=== PATIENT | female | born 1990 | race Hispanic/Latino ===

== ENCOUNTER 2017-06-14 07:54 | Day surgery (SDC) | payer OTHER ==
[2017-06-14] MEDS ORDERED: MORPHINE 10 MG/ML VIAL IV ONE (07:55)
[2017-06-14 08:14] LABS: Specific Gravity >= 1.030 (1.005-1.030)
[2017-06-14] MEDS ORDERED: ROCURONIUM 50 MG/5 ML VIAL IV ONE (08:25)
[2017-06-14] MEDS ORDERED: LIDOCAINE 1% MPF 5 ML VIAL ONE (08:25)
[2017-06-14] MEDS ORDERED: MIDAZOLAM HCL 2 MG/2 ML INJ ONE (08:25)
[2017-06-14] MEDS ORDERED: PROPOFOL 200 MG/20 ML VIAL IV ONE (08:25)
[2017-06-14] MEDS ORDERED: FENTANYL CITR 100 MCG/2 ML ONE (08:25)
[2017-06-14 08:28] LABS: Absolute Lymphocytes (CBC) 2.4 K/uL (0.7-4.9); Absolute Monocytes 0.6 K/uL (0.1-1.3); Absolute Neutrophil 3.6 K/uL (1.8-8.0); Basophils % 0.5 % (0-1.3); Eosinophils % 1.8 % (0-4.4); Hematocrit 42.5 % (36.0-45.0); Lymphocytes % 35.6 % (15.3-44.8); MCH 31.1 pg (27.0-35.0); MCV 91.4 fL (80-100); MPV 10.1 fL (7.6-11.3); Monocytes % 8.5 % (3.3-12.3); RBC Red Blood Cell Count 4.65 M/uL (3.86-4.86)
[2017-06-14] MEDS ORDERED: Ringers Lactate 1,000 ML IV ONE ×2 (08:28→10:31)
[2017-06-14] MEDS ORDERED: CEFOXITIN/SWI 1gm 1 GM/10 ML SYR ONE (08:28)
[2017-06-14 08:36] LABS: Bicarbonate 27 mEq/L (21-31); Glucose Level 108 mg/dL (65-120); Potassium 4.1 mEq/L (3.6-5.0); Sodium Level 137 mEq/L (135-145)
[2017-06-14 08:43] LABS: ALT/SGPT 19 IU/L (10-60); AST/SGOT 19 IU/L (10-42); Albumin 4.4 g/dL (3.2-5.5); Alkaline Phosphatase 70 IU/L (42-121); Amylase Level 87 U/L (28-100); BUN Blood Urea Nitrogen 13 mg/dL (6-20); Bilirubin Direct 0.1 mg/dL (0-0.2); Bilirubin Total 0.4 mg/dL (0.3-1.2); Protein, Total 7.4 g/dL (6.0-8.3)
[2017-06-14] MEDS ORDERED: PROMETHAZINE 25 MG/ML VIAL ONE (10:36)
[2017-06-14] MEDS ORDERED: MEPERIDINE HCL 50 MG/ML AMP ONE (10:36)
[2017-06-14] MEDS ORDERED: D5LR 0 ML IV ONE (10:45)
[2017-06-14] MEDS ORDERED: MEPERIDINE HCL 25 MG/0.5 ML ONE (11:20)
[2017-06-14] MEDS ORDERED: CODEINE 30MG/APAP 300MG TAB ONE (12:38)
--- NOTE | 2017-06-14 20:55 | DS ---
Date of Discharge: 06/14/2017 Discharge Note: The patient will go to Day Surgery and home when stable. Disposition: Home. Condition: Stable. Discharge Instructions: Resume home medications and diet. Activities as tolerated. No heavy lifting . Remove outer dressing in 2 days. Shower. Keep wound clean and dry. Keep Steri-Strips on at all times. Tylenol No. 3 one tablet p.o. q.4 p.r.n. pain. Follow up in my office next Saturday, call for appointment. POPEYE/CHUY Voice ID: [id number] Report ID: [id number]
--- NOTE | 2017-06-14 20:55 | OP ---
Date of Procedure: 06/14/2017 Surgeon: Campbell Lutz MD Structural Steel Worker Apprentice: LORAINE Bob. Preoperative Diagnosis: Symptomatic cholelithiasis. Postoperative Diagnosis: Symptomatic cholelithiasis. Procedure Performed: Laparoscopic cholecystectomy. Estimated Blood Loss: Minimal. Specimen: Gallbladder. Findings: As above. Anesthesia: General. Complications: None. The patient tolerated the procedure in stable condition, taken to Recovery in good general condition. Operative Note: The patient was brought to the OR and placed in the supine position. General anesth esia begun. The patient was prepped and draped in usual sterile fashion. Marcaine 0.5% was infiltra kasandra locally. A 15-blade was used to make a 1 cm supraumbilical midline incision. Subcutaneous tissu e divided. The fascia was identified and divided. A #1 Vicryl stay suture was placed. Peritoneal c avity was entered with blunt dissection. A 12 mm trocar was placed into the peritoneal cavity under direct vision. Pneumoperitoneum was established. Then, three 5 mm trocars were placed, 1 in the epi gastrium just to the right of midline and 2 in the right subcostal region. Laparoscopy revealed electric shovel operator eric inflammation of the gallbladder. Fundus retracted superiorly. Infundibulum identified, retracte d inferolaterally. Cystic duct and cystic artery were clearly identified with blunt dissection. Cli ps placed. Both structures divided. Cautery used to remove the gallbladder from the liver bed. Ble eding on the liver bed was controlled with cautery. The gallbladder was retrieved through the umbili cus via an EndoCatch bag. The right upper quadrant examined. No evidence of bleeding or bile leakag e appreciated. Subsequently, all trocars were removed under direct vision. Stay sutures were tied t o each other to reapproximate the fascial defect. The wounds were irrigated. Bleeding controlled wi th cautery. A 3-0 chromic used to approximate the subcutaneous tissue and close the skin. Sterile d ressing was applied. The patient was awakened and taken to Recovery in good general condition. /MODL Voice ID: [id number] Report ID: [id number]
== END 2017-06-14 13:10 | disposition home or self-care (01) ==
LOC: OR 07:54
PROVIDERS: ATTEND Surgery
PROC: 0FT44ZZ Resection of Gallbladder, Percutaneous Endoscopic Approach (ICD-10-PCS; principal; 2017-06-14 08:45)
DX: K80.10 Calculus of gallbladder with chronic cholecystitis without obstruction (principal); Z83.3 Family history of diabetes mellitus
CPT/HCPCS: 36415; 80048; 80076; 81025; 82150; 85025; 88304; 88305; J2175; J2250; J2550; J3010

== ENCOUNTER 2018-03-09 05:18 | Emergency (ER) | payer OTHER, SELFPAY ==
--- OUTSIDE RECORDS SUMMARY | 2018-03-09 05:21 | XMS REPORT ---
:1990 Author Organization eClinicalWorks Care Team Providers Name Role Phone Omid Dobbs Provider Role Unavailable Allergies, Adverse Reactions, Alerts Substance Reaction Event Type N.K.D.A. Info Not Available Non Drug Allergy Problems Problem Type Condition Code Onset Dates Condition Status Problem Encounter for gynecological Z01.419 Active examination without abnormal finding Problem Depression, unspecified depression F32.9 Active type Problem Well woman exam with routine Z01.419 Active gynecological exam Medications Medication Code Code Instructions Start End Status Dosage System Date Date Mirena (52 MG) [facility] [id number] 20 MCG/24HR Active as directed Intrauterine Results No Known Results Summary Purpose [facility]
--- OUTSIDE RECORDS SUMMARY | 2018-03-09 05:21 | XMS REPORT ---
[...] exam with routine Z01.419 Active gynecological exam Assessment Well woman exam with routine Z01.419 Active gynecological exam Assessment Depression, unspecified depression F32.9 Active type Assessment Encounter for gynecological Z01.419 Active examination without abnormal finding Medications Medication Code System Code Instructions Start Date End Date Status Dosage Mirena (52 MG) NDC 0 Active not defined Results Name Result Date Reference Range Unit Abnormality Flag URINALYSIS AUTO W/O SCOPE (81952) ----NIT neg 20171003 ----URO 1.0 20171003 ----PROTEIN neg 20171003 ----pH 5.5 20171003 ----BLO neg 20171003 ----GLUCOSE neg 20171003 ----GHADA neg 20171003 ----BILIRUBIN 1+ 20171003 ----KETONES trace 20171003 ----SPECIFIC GRAVITY 1.030 20171003 Summary Purpose eClinicalWorks Submission
--- OUTSIDE RECORDS SUMMARY | 2018-03-09 05:21 | XMS REPORT ---
[...] with routine Z01.419 Active gynecological exam Assessment Surveillance for control, Z30.431 Active intrauterine device Medications Medication Code Code Instructions Start End Status Dosage System Date Date Mirena (52 MG) [facility] [id number] 20 MCG/24HR Active as directed Intrauterine Results No Known Results Summary Purpose eClinicalWorks Submission
[2018-03-09 06:02] LABS: Urine Blood NEGATIVE (NEG); Urine Glucose NEGATIVE (NEG); Urine Protein NEGATIVE (NEG); Urine Specific Gravity 1.025 (1.005-1.030); Urine pH 5.5 (5.0-7.0)
--- NOTE | 2018-03-09 08:53 | EDPHYS ---
Physician Documentation [facility] Name: Kylie Salas Age: 28 yrs Sex: Female : 1990 Arrival Date: 03/09/2018 Time: 05:25 Bed 8 Private MD: ED Physician Marquise Tamayo HPI: 03/09 06:51 This 28 yrs old Female presents to ER via Ambulatory with complaints of 9 pkl WEEKS PREG PASSED FLUID. 06:51 The patient presents with Patient is about 9 weeks . ( G5, Full Term 1, pkl 3, Living 1, LMP 12/31/17 ). Kempner a gush of fluid in vaginal canal about 1 hour ago. Has abdominal cramping passed 2 days. E/M ENGINEER: 05:43 5, Full Term 1, 3, Living 1, LMP 12/31/2017, Verified, EDC bb 10/07/2018, Gestational age from LMP: 9 weeks 5 days Historical: - Allergies: 05:43 No Known Allergies; bb - Home Meds: 05:43 vitamins [Active]; bb - PMHx: 05:43 None; bb - PSHx: 05:43 Cholecystectomy; bb - Immunization history:: Adult Immunizations up to date. - Social history:: Smoking status: Patient/guardian denies using tobacco, Patient/guardian denies using alcohol, street drugs. - Ebola Screening: : No symptoms or risks identified at this time. ROS: 06:51 Positive for gush of fluid in vaginal canal 1 hour ago. pkl 06:51 Eyes: Negative for injury, pain, redness, and discharge, ENT: Negative for injury, pain, and discharge, Neck: Negative for injury, pain, and swelling, Cardiovascular: Negative for chest pain, palpitations, and edema, Respiratory: Negative for shortness of breath, cough, wheezing, and pleuritic chest pain, Abdomen/GI: Negative for abdominal pain, nausea, vomiting, diarrhea, and constipation, Back: Negative for injury and pain, MS/Extremity: Negative for injury and deformity, Skin: Negative for injury, rash, and discoloration, Neuro: Negative for headache, weakness, numbness, tingling, and seizure. Exam: 06:51 Head/Face: Normocephalic, atraumatic. Eyes: Pupils equal round and reactive to light, pkl extra-ocular motions intact. Lids and lashes normal. Conjunctiva and sclera are non-icteric and not injected. Cornea within normal limits. Periorbital areas with no swelling, redness, or edema. ENT: Nares patent. No nasal discharge, no septal abnormalities noted. Tympanic membranes are normal and external auditory canals are clear. Oropharynx with no redness, swelling, or masses, exudates, or evidence of obstruction, uvula midline. Mucous membranes moist. Neck: Trachea midline, no thyromegaly or masses palpated, and no cervical lymphadenopathy. Supple, full range of motion without nuchal rigidity, or vertebral point tenderness. No Meningismus. Chest/axilla: Normal chest wall appearance and motion. Nontender with no deformity. No lesions are appreciated. Cardiovascular: Regular rate and rhythm with a normal S1 and S2. No gallops, murmurs, or rubs. Normal PMI, no JVD. No pulse deficits. Respiratory: Lungs have equal breath sounds bilaterally, clear to auscultation and percussion. No rales, rhonchi or wheezes noted. No increased work of breathing, no retractions or nasal flaring. Abdomen/GI: Soft, non-tender, with normal bowel sounds. No distension or tympany. No guarding or rebound. No evidence of tenderness throughout. Back: No spinal tenderness. No costovertebral tenderness. Full range of motion. Skin: Warm, dry with normal turgor. Normal color with no rashes, no lesions, and no evidence of cellulitis. MS/ Extremity: Pulses equal, no cyanosis. Neurovascular intact. Full, normal range of motion. Neuro: Awake and alert, GCS 15, oriented to person, place, time, and situation. Cranial nerves II-XII grossly intact. Motor strength 5/5 in all extremities. Sensory grossly intact. Cerebellar exam normal. Normal gait. Vital Signs: 05:43 BP 104 / 71; Pulse 83; Resp 16 S; Temp 98.4(O); Pulse Ox 99% on R/A; Weight 80.74 kg bb (R); Height 5 ft. 5 in. (165.10 cm) (R); Pain 0/10; 05:43 Body Mass Index 29.62 (80.74 kg, 165.10 cm) bb MDM: 06:23 Patient medically screened. nj 07:27 Data reviewed: vital signs, nurses notes. ED course: Nitrazine paper test performed by pool Steele RN ( Stella ) was Negative. 07:31 Patient medically screened. rn 08:51 Differential diagnosis: ovarian cyst, urinary tract infection. Differential diagnosis: rn ectopic . Data reviewed: lab test result(s), radiologic studies, ultrasound, and as a result, I will discharge patient. Counseling: I had a detailed discussion with the patient and/or guardian regarding: the historical points, exam findings, and any diagnostic results supporting the discharge/admit diagnosis. Special discussion: I discussed with the patient/guardian in detail that at this point there is no indication for admission to the hospital. It is understood, however, that if the symptoms persist or worsen the patient needs to return immediately for re-evaluation. ED course: Verified again with patient, no blood, only fluid discharge, u/s shows single IUP, neg UA, will dc home with return precautions.. 03/09 05:42 Order name: Urine Dipstick--Ancillary (enter results); Complete Time: 06:46 ms 03/09 05:42 Order name: Urine --Ancillary (enter results); Complete Time: 06:46 ms 03/09 06:48 Order name: Transvaginal Ob pkl Administered Medications: No medications were administered Disposition: 03/09/18 08:52 Discharged to Home. Impression: Threatened . - Condition is Stable. - Discharge Instructions: Threatened Miscarriage. - Medication Reconciliation Form, Thank You Letter, Antibiotic Education, Prescription Opioid Use form. - Follow up: Private Physician; When: As needed; Reason: Recheck today's complaints, Re-evaluation by your physician. - Problem is new. - Symptoms have improved. Signatures: Dispatcher [employer] EDMS Jarad Leonardo MD MD pkl Cronk, Niki, DANCE STUDIO MANAGER DANCE STUDIO MANAGER Rebecca Plascencia RN RN bb Nieto, Roman, MD MD rn Smirch, Shelby, RN RN ss Corrections: (The following items were deleted from the chart) 09:11 08:52 03/09/2018 08:52 Discharged to Home. Impression: Threatened . Condition ss is Stable. Forms are Medication Reconciliation Form, Thank You Letter, Antibiotic Education, Prescription Opioid Use. Follow up: Private Physician; When: As needed; Reason: Recheck today's complaints, Re-evaluation by your physician. Problem is new. Symptoms have improved. rn
--- NOTE | 2018-03-09 08:53 | ER ---
Nurse's Notes [facility] Name: Kylie Salas Age: 28 yrs Sex: Female : 1990 Arrival Date: 03/09/2018 Time: 05:25 Bed 8 Private MD: Diagnosis: Threatened Presentation: 03/09 05:39 Presenting complaint: Patient states: she was up this morning and felt a "gush of bb fluid" which was not blood or urine pt is 9 weeks and was having abdominal cramping all day Saturday and Saturday. Transition of care: patient was not received from another setting of care. Onset of symptoms was March 09, 2018. Risk Assessment: Do you want to hurt yourself or someone else? Patient reports no desire to harm self or others. Initial Sepsis Screen: Does the patient meet any 2 criteria? No. Patient's initial sepsis screen is negative. Does the patient have a suspected source of infection? No. Patient's initial sepsis screen is negative. Care prior to arrival: None. 05:39 Method Of Arrival: Ambulatory bb 05:39 Acuity: LYNETTE 3 bb NURSES SUPERINTENDENT: 05:43 5, Full Term 1, 3, Living 1, LMP 12/31/2017, Verified, EDC bb 10/07/2018, Gestational age from LMP: 9 weeks 5 days Historical: - Allergies: 05:43 No Known Allergies; bb - Home Meds: 05:43 vitamins [Active]; bb - PMHx: 05:43 None; bb - PSHx: 05:43 Cholecystectomy; bb - Immunization history:: Adult Immunizations up to date. - Social history:: Smoking status: Patient/guardian denies using tobacco, Patient/guardian denies using alcohol, street drugs. - Ebola Screening: : No symptoms or risks identified at this time. Screenin:57 Abuse screen: Denies threats or abuse. Denies injuries from another. Nutritional ca1 screening: No deficits noted. Tuberculosis screening: No symptoms or risk factors identified. Fall Risk None identified. Assessment: 05:57 General: Appears in no apparent distress. comfortable, Behavior is calm, cooperative, ca1 appropriate for age. Pain: Denies pain. Neuro: Level of Consciousness is awake, alert, obeys commands, Oriented to person, place, time, situation. Cardiovascular: Heart tones S1 S2 present Capillary refill < 3 seconds Patient's skin is warm and dry. Respiratory: Airway is patent Trachea midline Respiratory effort is even, unlabored, Respiratory pattern is regular, symmetrical, Breath sounds are clear bilaterally. GI: Abdomen is round non-distended, Bowel sounds present X 4 quads. Abd is soft and non tender X 4 quads. Reports cramping, since since 2 days ago. : Reports of gushing of water from vagina. EENT: No signs and/or symptoms were reported regarding the EENT system. Derm: Skin is intact, is healthy with good turgor, Skin is pink, warm \\T\\ dry. Musculoskeletal: Circulation, motion, and sensation intact. Range of motion: intact in all extremities. 07:10 Reassessment: LD nurse at bedside for nitrizine test, at bedside at this time. sg 07:25 Reassessment: pt observed walking out of ED with her spouse and , pt and pt sg spouse leaving facility to go get breakfast while waiting for aircraft ordnance technician to arrive, aware as this was his decision to let the pt leave and return after breakfast, Charge Nurse notified. 08:18 Reassessment: Pt and spouse back from breakfast. Informed ultrasound. sv Vital Signs: 05:43 BP 104 / 71; Pulse 83; Resp 16 S; Temp 98.4(O); Pulse Ox 99% on R/A; Weight 80.74 kg bb (R); Height 5 ft. 5 in. (165.10 cm) (R); Pain 0/10; 05:43 Body Mass Index 29.62 (80.74 kg, 165.10 cm) bb ED Course: 05:25 Patient arrived in ED. es 05:43 Triage completed. bb 05:43 Arm band placed on Patient placed in an exam room, on a stretcher, on pulse oximetry. bb Family accompanied patient. 05:57 Ceci Ruvalcaba, RN is Primary Nurse. ca1 05:57 Patient has correct armband on for positive identification. Bed in low position. Call ca1 light in reach. Side rails up X 1. 06:23 Jane Troncoso FNP is PHCP. nh 06:23 Jarad Leonardo MD is Attending Physician. nh 06:45 Jarad Leonardo MD is Attending Physician. pkl 07:31 Attending Physician role handed off by Jarad Leonardo MD rn 07:31 Marquise Tamayo MD is Attending Physician. rn 08:26 Patient taken to ultrasound. aa4 09:00 US Transvaginal Ob In Process Unspecified. EDMS 09:10 No provider procedures requiring assistance completed. Patient did not have IV access ss during this emergency room visit. Administered Medications: No medications were administered Outcome: 08:52 Discharge ordered by MD. rn 09:10 Discharged to home ambulatory, with significant other. ss 09:10 Condition: good 09:10 Discharge instructions given to patient, Instructed on discharge instructions, follow up and referral plans. medication usage, Demonstrated understanding of instructions, follow-up care, medications. 09:11 Patient left the ED. ss Signatures: Dispatcher [employer] EDNJ Sandra Birmingham, RN RN Clive Mcgovern RN RN Jarad Leonardo MD MD pkJane Cheney, PARQUET FLOOR LAYER'S HELPER PARQUET FLOOR LAYER'S HELPER Tracey Briones Brenda RN RN Kylie Morel aa4 Marquise Tamayo MD MD rn Smirch, Shelby, RN RN Ceci Ruvalcaba RN RN ca1
--- NOTE | 2018-03-09 13:06 | RAD REPORT ---
EXAM DESCRIPTION: US - Transvaginal OB - 03/09/2018 8:59 am CLINICAL HISTORY: felt gush of fluid Pelvic pain COMPARISON: No comparisons FINDINGS: A single gestational sac is seen within the uterus. The shape of the sac is within normal limits for gestational age. Within the sac is a single pole with crown-rump length of 2.5 cm, c orrelating to estimated gestational age of 9 weeks 2 days. Estimated date of delivery is 10/10/2018. Heart rate is 170 BPM. The placenta is not yet developed due to early gestational age. The maternal adnexa and ovaries are within normal limits. Normal Doppler blood flow was demonstrated to both ovaries. IMPRESSION: Single live early intrauterine gestation with estimated gestational age of 9 weeks 2 day s, ROSETTA 10/10/2018. No unusual or unexpected finding.
== END 2018-03-09 09:11 | disposition home or self-care (01) ==
LOC: ER 05:18
DX: O20.0 Threatened abortion (principal); Z3A.09 9 weeks gestation of pregnancy
CPT/HCPCS: 76817; 81003; 81025; 99284

== ENCOUNTER 2019-12-15 09:04 | Emergency (ER) | payer SELFPAY, OTHER ==
[2019-12-15 09:46] LABS: Basophils % 0.8 % (0-1.3); Hematocrit 42.1 % (36.0-45.0); Lymphocytes % 23.2 % (15.3-44.8); MPV 10.5 fL (7.6-11.3); RBC Red Blood Cell Count 4.66 M/uL (3.86-4.86)
[2019-12-15 09:59] LABS: ALT/SGPT 149 U/L (12-78); AST/SGOT 47 U/L (15-37); Albumin 3.5 g/dL (3.4-5.0); Alkaline Phosphatase 125 U/L (45-117); BUN Blood Urea Nitrogen 10 mg/dL (7-18); Bicarbonate 25 mmol/L (21-32); Bilirubin Direct 0.1 mg/dL (0-0.2); Bilirubin Total 0.3 mg/dL (0.2-1.0); Glucose Level 110 mg/dL (74-106); Lipase 218 U/L (73-393); Potassium 3.9 mmol/L (3.5-5.1); Protein, Total 8.1 g/dL (6.4-8.2); Sodium Level 140 mmol/L (136-145)
[2019-12-15] MEDS ORDERED: ONDANSETRON 4 MG/2 ML VIAL ONE (10:05)
[2019-12-15] MEDS ORDERED: NA CHLORIDE 0.9% 1,000 ML ONE ×2 (10:05→12:14)
[2019-12-15 11:39] LABS: Urine Blood NEGATIVE (NEG); Urine Glucose NEGATIVE (NEG); Urine Protein NEGATIVE (NEG); Urine Specific Gravity >1.030 (1.005-1.030); Urine pH 5.5 (5.0-7.0)
--- NOTE | 2019-12-15 12:19 | RAD REPORT ---
EXAM DESCRIPTION: US - Abdomen Exam Limited - 12/15/2019 9:58 am CLINICAL HISTORY: Abdominal pain. COMPARISON: None. FINDINGS: Liver is enlarged with increased echotexture. Cholecystectomy The gallbladder wall is not thickened. A gallstone is not seen. The biliary tree is normal caliber. IMPRESSION: Hepatomegaly Increased hepatic echotexture probably fatty infiltration
[2019-12-15] MEDS ORDERED: PROMETHAZINE INJ 25 MG/ML AMP ONE (12:27)
[2019-12-15] MEDS ORDERED: MORPHINE 4 MG/ML SYR ONE (12:28)
--- NOTE | 2019-12-15 12:30 | RAD REPORT ---
EXAM DESCRIPTION: CT - Abdomen Pelvis W Contrast - 12/15/2019 12:00 pm CLINICAL HISTORY: Abdominal pain COMPARISON: none. TECHNIQUE: Computed axial tomography of the abdomen pelvis was obtained. 100 cc Isovue-300 was admin istered intravenously. Oral contrast was not requested which limits evaluation of bowel. All CT scans are performed using dose optimization technique as appropriate and may include automated exposure control or mA/KV adjustment according to patient size. FINDINGS: The liver is enlarged with marked fatty infiltration Spleen, pancreas, adrenal and kidneys appear unremarkable. There is no evidence of diverticulitis. A 27 millimeter left ovarian cyst without significant free fluid Small umbilical hernia IMPRESSION: 27 millimeter left ovarian cyst without significant free fluid Hepatomegaly with marked fatty infiltration
--- NOTE | 2019-12-15 12:55 | EDPHYS ---
Physician Documentation [facility] Name: Kylie Salas Age: 29 yrs Sex: Female : 1990 Arrival Date: 12/15/2019 Time: 09:06 Bed 6 Private MD: Nigel Tian ED Physician Marquise Tamayo HPI: 12/14 09:26 This 29 yrs old Female presents to ER via Unassigned with complaints of pm1 Abdominal Pain, Vomiting/Diarrhea, Vertigo. 09:26 The patient presents with abdominal pain in the upper abdomen. Onset: The pm1 symptoms/episode began/occurred 3 day(s) ago. The symptoms do not radiate. Associated signs and symptoms: Pertinent positives: nausea, vomiting, and diarrhea, Pertinent negatives: chest pain, constipation, shortness of breath. The symptoms are described as crampy. Modifying factors: the symptoms are aggravated by food. Severity of pain: in the emergency department the pain has improved is a 4 / 10. The patient has not experienced similar symptoms in the past. The patient has not recently seen a physician. 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 - Social history:: Smoking status: Patient denies any tobacco usage or history of. ROS: 09:36 Eyes: Negative for injury, pain, redness, and discharge, ENT: Negative for injury, pm1 pain, and discharge, Neck: Negative for injury, pain, and swelling, Cardiovascular: Negative for chest pain, palpitations, and edema, Respiratory: Negative for shortness of breath, cough, wheezing, and pleuritic chest pain. 09:36 Back: Negative for injury and pain, : Negative for injury, bleeding, discharge, and swelling, MS/Extremity: Negative for injury and deformity, Skin: Negative for injury, rash, and discoloration, Neuro: Negative for headache, weakness, numbness, tingling, and seizure. 09:36 Constitutional: Positive for poor PO intake, Negative for body aches, fever. 09:36 Abdomen/GI: Positive for abdominal pain, nausea and vomiting, Negative for diarrhea, constipation. Exam: 09:36 Constitutional: This is a well developed, well nourished patient who is awake, alert, pm1 and in no acute distress. Head/Face: Normocephalic, atraumatic. 09:36 Back: No spinal tenderness. No costovertebral tenderness. Full range of motion. Skin: Warm, dry with normal turgor. Normal color with no rashes, no lesions, and no evidence of cellulitis. MS/ Extremity: Pulses equal, no cyanosis. Neurovascular intact. Full, normal range of motion. 09:36 Cardiovascular: Exam negative for acute changes, Rate: normal, Rhythm: regular, Pulses: no pulse deficits are appreciated, Edema: is not appreciated. 09:36 Respiratory: Exam negative for acute changes, respiratory distress, shortness of breath. 09:36 Abdomen/GI: Inspection: abdomen appears normal, Palpation: soft, mild abdominal tenderness, in the epigastric area. 09:36 Neuro: Exam negative for acute changes, Orientation: is normal, Motor: is normal, moves all fours. Vital Signs: 09:18 BP 128 / 92; Pulse 87; Resp 16; Temp 98.8; Pulse Ox 99% on R/A; Pain 6/10; hb 09:32 Weight 95.25 kg; Pain 4/10; iw 12:09 BP 108 / 51; Pulse 72; Pulse Ox 100% on R/A; hb 12:30 BP 108 / 75; Pulse 71; Pulse Ox 100% on R/A; hb MDM: 09:24 Patient medically screened. pm1 09:26 Data reviewed: vital signs. Data interpreted: Pulse oximetry: on room air is 99 %. pm1 Interpretation: normal. 09:26 ED course: Patient rates pain 4/10. She does not want any pain medications at the pm1 moment. Informed her to let us know any time she would like pain medications. 11:50 ED course: Feels better with fluids and medications given in the ER. She would like pm1 more additional fluids. 12:42 Counseling: I had a detailed discussion with the patient and/or guardian regarding: the pm1 historical points, exam findings, and any diagnostic results supporting the discharge/admit diagnosis, lab results, radiology results, the need for outpatient follow up, to return to the emergency department if symptoms worsen or persist or if there are any questions or concerns that arise at home. 12:42 ED course: informed regarding pending covid 19 test results. Will need to isolate and pm1 not work until symptoms resolve and covid results return. 10 09:24 Order name: Basic Metabolic Panel; Complete Time: 10:02 pm1 12/14 09:24 Order name: CBC with Diff; Complete Time: 09:48 pm1 12/14 09:24 Order name: Hepatic Function; Complete Time: 10:02 pm1 12/14 09:24 Order name: Lipase; Complete Time: 10:02 pm1 12/14 09:34 Order name: COVID-19 pm1 12/14 09:34 Order name: Flu pm1 12/14 09:24 Order name: CT Abd/Pelvis - IV Contrast Only; Complete Time: 12:33 pm1 12/14 09:34 Order name: Strep pm1 12/14 09:34 Order name: CORONAVIRUS EDMS 12/14 09:34 Order name: Influenza Screen (A ; Complete Time: 11:34 EDMS 12/14 09:34 Order name: Group A Streptococcus Rapid Sc; Complete Time: 11:20 EDMS 12/14 11:10 Order name: Urine Dipstick--Ancillary (enter results); Complete Time: 11:47 bd 12/14 11:10 Order name: Urine --Ancillary (enter results); Complete Time: 11:47 bd 12/14 11:21 Order name: Throat Culture EDMS 12/14 09:24 Order name: IV Saline Lock; Complete Time: 10:19 pm1 12/14 09:24 Order name: Labs collected and sent; Complete Time: 10:18 pm1 12/14 09:24 Order name: Urine Dipstick-Ancillary (obtain specimen); Complete Time: 11:08 pm1 12/14 09:24 Order name: Urine Test (obtain specimen); Complete Time: 11:08 pm1 12/14 09:24 Order name: US Abdomen Limited; Complete Time: 12:23 pm1 Administered Medications: 10:06 Drug: NS 0.9% 1000 ml Route: IV; Rate: 1000 ml; Site: right antecubital; hb 10:07 Drug: Zofran (Ondansetron) 4 mg Route: IVP; Site: right antecubital; hb 12:09 Drug: NS 0.9% 1000 ml Route: IV; Rate: 1000 ml; Site: right antecubital; hb 12:18 Drug: morphine 4 mg Route: IVP; Site: right antecubital; hb 12:45 Follow up: Response: No adverse reaction hb 12:18 Drug: Phenergan 12.5 mg Route: IVP; Site: right antecubital; hb 12:46 Follow up: Response: No adverse reaction hb 12:51 Drug: Bentyl 20 mg Route: PO; hb Disposition: 16:43 Co-signature as Attending Physician, Marquise Tamayo MD. rn Disposition: 12/15/19 12:54 Discharged to Home. Impression: Unspecified abdominal pain, Nausea and vomiting, Other ovarian cysts. - Condition is Stable. - Discharge Instructions: Abdominal Pain, Adult, Nausea and Vomiting, Adult, Ovarian Cyst, Viral Gastroenteritis, Adult. - Prescriptions for Bentyl 20 mg Oral Tablet - take 1 tablet by ORAL route every 6 hours As needed; 20 tablet. Phenergan 25 mg Rectal Suppository - insert 1 suppository by RECTAL route every 6 hours As needed; 12 suppository. promethazine 25 mg Oral Tablet - take 1 tablet by ORAL route every 6 hours As needed; 20 tablet. - Work release form, Medication Reconciliation Form, Thank You Letter, Antibiotic Education, Prescription Opioid Use form. - Follow up: Emergency Department; When: As needed; Reason: Worsening of condition. Follow up: Private Physician; When: 2 - 3 days; Reason: Recheck today's complaints, Continuance of care, Re-evaluation by your physician. - Problem is new. - Symptoms have improved. Signatures: Dispatcher [employer] Maria Luisa Mccoy RN RN Marquise Tamayo MD MD rn Marinas, Patrick, SHAREE PROFESSOR OF OCEANOGRAPHY pm1 Nelda Schuster RN RN Corrections: (The following items were deleted from the chart) 12:57 12:42 ED course: informed regarding pending covid 19 test results. pm1 pm1 13:02 12:54 12/15/2019 12:54 Discharged to Home. Impression: Unspecified abdominal pain; pm1 Nausea and vomiting. Condition is Stable. Forms are Medication Reconciliation Form, Thank You Letter, Antibiotic Education, Prescription Opioid Use. Follow up: Emergency Department; When: As needed; Reason: Worsening of condition. Follow up: Private Physician; When: 2 - 3 days; Reason: Recheck today's complaints, Continuance of care, Re-evaluation by your physician. Problem is new. Symptoms have improved. pm1 13:26 13:02 12/15/2019 12:54 Discharged to Home. Impression: Unspecified abdominal pain; hb Nausea and vomiting; Other ovarian cysts. Condition is Stable. Discharge Instructions: Abdominal Pain, Adult, Nausea and Vomiting, Adult, Viral Gastroenteritis, Adult. Prescriptions for Bentyl 20 mg Oral Tablet - take 1 tablet by ORAL route every 6 hours As needed; 20 tablet, Phenergan 25 mg Rectal Suppository - insert 1 suppository by RECTAL route every 6 hours As needed; 12 suppository, promethazine 25 mg Oral Tablet - take 1 tablet by ORAL route every 6 hours As needed; 20 tablet. and Forms are Medication Reconciliation Form, Thank You Letter, Antibiotic Education, Prescription Opioid Use, Work release form. Follow up: Emergency Department; When: As needed; Reason: Worsening of condition. Follow up: Private Physician; When: 2 - 3 days; Reason: Recheck today's complaints, Continuance of care, Re-evaluation by your physician. Problem is new. Symptoms have improved. pm1
--- NOTE | 2019-12-15 12:55 | ER ---
Nurse's Notes [facility] Name: Kylie Salas Age: 29 yrs Sex: Female : 1990 Arrival Date: 12/15/2019 Time: 09:06 Bed 6 Private MD: Nigel Tian Diagnosis: Unspecified abdominal pain;Nausea and vomiting;Other ovarian cysts Presentation: 12/14 09:18 Chief complaint: Dizziness, upper abdominal pain and N/V x 4 days. Syncopal episode 4 hb days ago. Coronavirus screen: nausea, vomiting. Client presents with at least one sign or symptom that may indicate coronavirus-19. Standard/surgical mask placed on the client. Provider contacted for isolation considerations. Ebola Screen: No symptoms or risks identified at this time. Initial Sepsis Screen: Does the patient meet any 2 criteria? No. Patient's initial sepsis screen is negative. Does the patient have a suspected source of infection? No. Patient's initial sepsis screen is negative. Risk Assessment: Do you want to hurt yourself or someone else? Patient reports no desire to harm self or others. Onset of symptoms was December 12, 2019. 09:18 Method Of Arrival: Ambulatory hb 09:18 Acuity: LYNETTE 3 hb [employer]: 09:30 LMP 12/09/2019 iw Historical: - Allergies: :28 No Known Allergies; hb - Home Meds: 09:30 Trintellix oral oral once daily [Active]; iw - PMHx: 09:30 Depression; iw - PSHx: 09:28 Cholecystectomy; hb 09:30 ; iw - Immunization history:: Adult Immunizations up to date. - Social history:: Smoking status: Patient denies any tobacco usage or history of. Screenin:28 Abuse screen: Denies threats or abuse. Denies injuries from another. Nutritional hb screening: No deficits noted. Tuberculosis screening: No symptoms or risk factors identified. Fall Risk None identified. Assessment: 09:30 General: Appears in no apparent distress. Behavior is calm, cooperative. Pain: Pain hb currently is 6 out of 10 on a pain scale. Neuro: Level of Consciousness is awake, alert, obeys commands, Oriented to person, place, time, situation. Cardiovascular: Capillary refill < 3 seconds Patient's skin is warm and dry. Respiratory: Respiratory effort is even, unlabored, Respiratory pattern is regular, symmetrical. GI: Reports lower abdominal pain, upper abdominal pain, nausea. : No signs and/or symptoms were reported regarding the genitourinary system. EENT: No signs and/or symptoms were reported regarding the EENT system. Derm: Skin is pink, warm \T\ dry. Musculoskeletal: No signs and/or symptoms reported regarding the musculoskeletal system. 10:30 Reassessment: Patient appears in no apparent distress at this time. Patient and/or hb family updated on plan of care and expected duration. Pain level reassessed. Patient is alert, oriented x 3, equal unlabored respirations, skin warm/dry/pink. 11:30 Reassessment: Patient appears in no apparent distress at this time. Patient and/or hb family updated on plan of care and expected duration. Pain level reassessed. Patient is alert, oriented x 3, equal unlabored respirations, skin warm/dry/pink. 12:30 Reassessment: Patient appears in no apparent distress at this time. Patient and/or hb family updated on plan of care and expected duration. Pain level reassessed. Patient is alert, oriented x 3, equal unlabored respirations, skin warm/dry/pink. Vital Signs: 09:18 BP 128 / 92; Pulse 87; Resp 16; Temp 98.8; Pulse Ox 99% on R/A; Pain 6/10; hb 09:32 Weight 95.25 kg; Pain 4/10; iw 12:09 BP 108 / 51; Pulse 72; Pulse Ox 100% on R/A; hb 12:30 BP 108 / 75; Pulse 71; Pulse Ox 100% on R/A; hb ED Course: 09:06 Patient arrived in ED. mr 09:06 Nigel Tian MD is Private Physician. mr 09:08 Initial lab(s) drawn, by ED staff, sent to lab. Inserted saline lock: 20 gauge in right kj1 antecubital area, using aseptic technique. Blood collected. 09:12 Aidan Soria NP is PHCP. pm1 09:12 Marquise Tamayo MD is Attending Physician. pm1 09:24 Nelda Schuster, GAGAN is Primary Nurse. hb 09:27 Triage completed. hb 09:28 Arm band placed on. hb 09:28 Patient has correct armband on for positive identification. Bed in low position. Call hb light in reach. 09:57 US Abdomen Limited In Process Unspecified. EDMS 12:00 CT Abd/Pelvis - IV Contrast Only In Process Unspecified. EDMS 13:24 No provider procedures requiring assistance completed. IV discontinued, intact, hb bleeding controlled, No redness/swelling at site. Administered Medications: 10:06 Drug: NS 0.9% 1000 ml Route: IV; Rate: 1000 ml; Site: right antecubital; hb 10:07 Drug: Zofran (Ondansetron) 4 mg Route: IVP; Site: right antecubital; hb 12:09 Drug: NS 0.9% 1000 ml Route: IV; Rate: 1000 ml; Site: right antecubital; hb 12:18 Drug: morphine 4 mg Route: IVP; Site: right antecubital; hb 12:45 Follow up: Response: No adverse reaction hb 12:18 Drug: Phenergan 12.5 mg Route: IVP; Site: right antecubital; hb 12:46 Follow up: Response: No adverse reaction hb 12:51 Drug: Bentyl 20 mg Route: PO; hb Outcome: 12:54 Discharge ordered by MD. pm1 13:24 Discharged to home ambulatory. hb 13:24 Condition: stable 13:24 Discharge instructions given to patient, Instructed on discharge instructions, follow up and referral plans. medication usage, Demonstrated understanding of instructions, follow-up care, medications, Prescriptions given X 3. 13:26 Patient left the ED. hb Addendum: 12/18/2019 12:51 Addendum: COVID-19 Result: Negative result given to RN to notify pt. Notified pt of e b negative COVID 19 swab results. Pt advised that even with a negative test result they should remain in isolation until symptom free for 3 days without medication. Pt also advised to return to the ED for worsening symptoms. Signatures: Dispatcher [employer] [facility] Linda Rangel Maria Luisa Mccoy RN RN iw Marinas, Patrick, NP [employer]LL CHANGER pm1 Nelda Schuster RN RN hb Botello, Elizabeth eb Jackson, Kandis kj1 Corrections: (The following items were deleted from the chart) 12/14 09:32 09:18 Coronavirus screen: At this time, the client does not indicate any symptoms iw associated with coronavirus-19. hb
[2019-12-15] MEDS ORDERED: DICYCLOMINE HCL 10 MG CAP ONE (13:02)
[2019-12-15 13:42] VITALS: TEMP 98.8
[2019-12-15 13:51] VITALS: O2SAT 100
[2019-12-15 13:52] VITALS: BP 108/75
--- OUTSIDE RECORDS SUMMARY | 2019-12-17 11:59 | XMS REPORT | Continuity of Care Document ---
:1990 Author Organization [facility] t Address [address] [place] [address] Care Team Providers Name Role Phone Unavailable Unavailable Unavailable Payers Payer Name Policy Type Policy Number Effective Date Expiration Date S ource Problems Condition Condition Condition Status Onset Resolution Last Treating Co mments Source Name Details Category Date Date Treatment Clinician Date Well woman Well woman Problem Active [facility] exam with exam with Luke [facility] - routine routine [facility]oria gynecologi gynecologi l nena exam nena exam Outpat i ent Clinics Depression Depression Problem Active [facility] unspecifie unspecifie Me moria d d l depression depression Ou tpati type type ent Clinics Surveillan Surveillan Diagnosis Active [facility] for [facility] control, control, l intrauteri intrauteri Ou tpati ne device ne device ent Clinics Allergies, Adverse Reactions, Alerts Allergy Allergy Status Severity Reaction(s) Onset Inactive Treating Comm ents Source Name Type Date Date Clinician No Known DA Active U [facility] 5-10 Clear Allergie 00:00: Brenner s 00 [facility] Medications Ordered Filled Start Stop Current Ordering Indication Dosage Frequency Signature Comments Components Source Medication Medication Date Date Medication? Clinician (SIG) Name Name Mirena (52 Mirena (52 Yes Omid as [facility]) MG) Rekhi directed [facility] Procedures This patient has no known procedures. Encounters Start End Encounter Admission Attending Care Care Encounter Source Date/Time Date/Time Type Type Clinicians Facility Department ID 2017-11-13 2017-11-13 Outpatient Harvey Martinez [id number] [facility] 09:30:00 09:30:00 [facility] 2017-10-29 2017-10-29 Outpatient Harvey Martinez [id number] [facility] 16:55:00 16:55:00 t [facility] 2017-10-03 2017-10-03 Outpatient Harvey Martinez [id number] [facility] 09:30:00 09:30:00 t [facility] Results Test Description Test Time Test Comments Results Result Comments Source CBC W/AUTO DIFF 2018-09-13 07:14:00 Test Item Value Reference Range Interpretation Comme nts WHITE BLOOD CELL (test code = WBC) 9.03 x10 3/uL 4.5-11.0 N RED BLOOD CELL (test code = RBC) 3.66 x10 6/uL 3.54-5.02 N HEMOGLOBIN (test code = HGB) 10.9 g/dL 11.0-15.0 L HEMATOCRIT (test code = HCT) 33.9 % 33.0-45.0 N MEAN CELL VOLUME (test code = MCV) 92.6 fL 81.0-99.0 N MEAN CELL HGB (test code = MCH) 29.8 pg 27.0-33.0 N MEAN CELL HGB CONCETRATION (test code = MCHC) 32.2 g/dL 33.0-37. 0 L RED CELL DISTRIBUTION WIDTH CV (test code = RDW) 13.6 % 11.5- 14.5 N RED CELL DISTRIBUTION WIDTH SD (test code = RDW-SD) 45.9 fL 37 .0-54.0 N PLATELET COUNT (test code = PLT) 312 x10 3/uL 150-400 N MEAN PLATELET VOLUME (test code = MPV) 11.6 fL 7.0-9.0 H NEUTROPHIL % (test code = NT%) 57.7 % 56.0-77.0 N IMMATURE GRANULOCYTE % (test code = IG%) 0.7 % 0.0-2.0 N LYMPHOCYTE % (test code = LY%) 31.5 % 14.0-32.0 N MONOCYTE % (test code = MO%) 8.5 % 4.8-9.0 N EOSINOPHIL % (test code = EO%) 1.3 % 0.3-3.7 N BASOPHIL % (test code = BA%) 0.3 % 0.0-2.0 N NUCLEATED RBC % (test code = NRBC%) 0.0 % 0-0 N NEUTROPHIL # (test code = NT#) 5.21 x10 3/uL 2.0-7.6 N IMMATURE GRANULOCYTE # (test code = IG#) 0.06 x10 3/uL 0.00-0.03 H LYMPHOCYTE # (test code = LY#) 2.84 x10 3/uL 1.0-3.8 N MONOCYTE # (test code = MO#) 0.77 x10 3/uL 0.1-0.8 N EOSINOPHIL # (test code = EO#) 0.12 x10 3/uL 0.0-0.2 N BASOPHIL # (test code = BA#) 0.03 x10 3/uL 0.0-0.2 N NUCLEATED RBC # (test code = NRBC#) 0.00 x10 3/uL 0.0-0.1 N MANUAL DIFF REQUIRED (test code = MDIFF) NO COMMENTS: POD #1 and #2COMPREHENSIVE METABOLIC [id number] 08:08:00 Test Item Value Reference Range Interpretation Comments SODIUM (test code = NA) 140 mEq/L 134-147 N POTASSIUM (test code = 3.8 mEq/L 3.4-5.0 N K) CHLORIDE (test code = 109 mEq/L 100-108 H CL) CARBON DIOXIDE (test 23 mEq/L 21-33 N code = CO2) ANION GAP (test code = 12 0-20 N GAP) GLUCOSE (test code = 65 mg/dL 70-110 L GLU) BLOOD UREA NITROGEN 10 mg/dL 7-18 N (test code = BUN) GLOMERULAR FILTRATION 146.9 110-120 H Units of measure = RATE (test code = GFR) ml/mi n/1.73 m2 CREATININE (test code = 0.5 mg/dL 0.6-1.3 L CREAT) TOTAL PROTEIN (test 5.4 g/dL 6.4-8.2 L code = PROT) ALBUMIN (test code = 2.10 g/dL 3.4-5.0 L ALB) CALCIUM (test code = 8.5 mg/dL 8.0-10.5 N CA) BILIRUBIN TOTAL (test 0.20 mg/dL 0.0-1.0 N code = BILT) SGOT/AST (test code = 14 IUnit/L 15-37 L AST) SGPT/ALT (test code = 19 IUnit/L 15-65 N ALT) ALKALINE PHOSPHATASE 108 IUnit/L 20-125 N TOTAL (test code = ALKP) COMMENTS: POD #1CBC W/AUTO [id number] 07:10:00 Test Item Value Reference Range Interpretation Comments WHITE BLOOD CELL (test code = 13.54 x10 3/uL 4.5-11.0 H WBC) RED BLOOD CELL (test code = 3.44 x10 6/uL 3.54-5.02 L RBC) HEMOGLOBIN (test code = HGB) 10.4 g/dL 11.0-15.0 L HEMATOCRIT (test code = HCT) 32.4 % 33.0-45.0 L MEAN CELL VOLUME (test code = 94.2 fL 81.0-99.0 MCV) MEAN CELL HGB (test code = 30.2 pg 27.0-33.0 N MCH) MEAN CELL HGB CONCETRATION 32.1 g/dL 33.0-37.0 L (test code = MCHC) RED CELL DISTRIBUTION WIDTH CV 13.7 % 11.5-14.5 N (test code = RDW) RED CELL DISTRIBUTION WIDTH SD 46.7 fL 37.0-54.0 N (test code = RDW-SD) PLATELET COUNT (test code = 278 x10 3/uL 150-400 N PLT) MEAN PLATELET VOLUME (test 11.8 fL 7.0-9.0 H code = MPV) NEUTROPHIL % (test code = NT%) 61.2 % 56.0-77.0 N IMMATURE GRANULOCYTE % (test 0.5 % 0.0-2.0 N code = IG%) LYMPHOCYTE % (test code = LY%) 28.0 % 14.0-32.0 N MONOCYTE % (test code = MO%) 9.2 % 4.8-9.0 H EOSINOPHIL % (test code = EO%) 0.8 % 0.3-3.7 N BASOPHIL % (test code = BA%) 0.3 % 0.0-2.0 N NUCLEATED RBC % (test code = 0.0 % 0-0 N NRBC%) NEUTROPHIL # (test code = NT#) 8.29 x10 3/uL 2.0-7.6 H IMMATURE GRANULOCYTE # (test 0.07 x10 3/uL 0.00-0.03 H code = IG#) LYMPHOCYTE # (test code = LY#) 3.79 x10 3/uL 1.0-3.8 N MONOCYTE # (test code = MO#) 1.24 x10 3/uL 0.1-0.8 H EOSINOPHIL # (test code = EO#) 0.11 x10 3/uL 0.0-0.2 N BASOPHIL # (test code = BA#) 0.04 x10 3/uL 0.0-0.2 N NUCLEATED RBC # (test code = 0.00 x10 3/uL 0.0-0.1 N NRBC#) MANUAL DIFF REQUIRED (test NO code = MDIFF) COMMENTS: POD #1 and #2RAPID PLASMA [id number] 11:10:00 Test Item Value Reference Range Interpretation Comments RAPID PLASMA REAGIN (test code = NONREACTIVE NONREACTIVE RPR) AG HEPATITIS B [id number] 11:10:00 Test Item Value Reference Range Interpretation Comments AG HEPATITIS B SURFACE NON REACTIVE INDEX NonReactive (test code = HBSAG) AB HIV 1 11:10:00 Test Item Value Reference Range Interpretation Comments AB HIV 1 2 (test code = NONREACTIVE INDEX NONREACTIVE [id number]) RAPID PLASMA [id number] 04:36:00 Test Item Value Reference Range Interpretation Comments RAPID PLASMA REAGIN (test code = RPR) NONREACTIVE AG HEPATITIS B [id number] 04:36:00 Test Item Value Reference Range Interpretation Comments AG HEPATITIS B SURFACE NON REACTIVE INDEX NonReactive (test code = HBSAG) AB HIV 1 04:36:00 Test Item Value Reference Range Interpretation Comments AB HIV 1 2 (test code = NONREACTIVE INDEX NONREACTIVE [id number]) RAPID PLASMA [id number] 02:20:00 Test Item Value Reference Range Interpretation Comments RAPID PLASMA REAGIN (test code = RPR) NONREACTIVE AG HEPATITIS B [id number] 02:20:00 Test Item Value Reference Range Interpretation Comments AG HEPATITIS B SURFACE NON REACTIVE INDEX NonReactive (test code = HBSAG) AB HIV 1 02:20:00 Test Item Value Reference Range Interpretation Comments AB HIV 1 2 (test code = [id number]) INDEX NONREACTIVE CBC W/AUTO [id number] 01:30:00 Test Item Value Reference Range Interpretation Comments WHITE BLOOD CELL (test code = 11.94 x10 3/uL 4.5-11.0 H WBC) RED BLOOD CELL (test code = 3.73 x10 6/uL 3.54-5.02 N RBC) HEMOGLOBIN (test code = HGB) 11.2 g/dL 11.0-15.0 N HEMATOCRIT (test code = HCT) 33.8 % 33.0-45.0 N MEAN CELL VOLUME (test code = 90.6 fL 81.0-99.0 N MCV) MEAN CELL HGB (test code = 30.0 pg 27.0-33.0 N MCH) MEAN CELL HGB CONCETRATION 33.1 g/dL 33.0-37.0 N (test code = MCHC) RED CELL DISTRIBUTION WIDTH CV 13.2 % 11.5-14.5 N (test code = RDW) RED CELL DISTRIBUTION WIDTH SD 44.0 fL 37.0-54.0 N (test code = RDW-SD) PLATELET COUNT (test code = 310 x10 3/uL 150-400 N PLT) MEAN PLATELET VOLUME (test 11.8 fL 7.0-9.0 H code = MPV) NEUTROPHIL % (test code = NT%) 65.9 % 56.0-77.0 N IMMATURE GRANULOCYTE % (test 0.8 % 0.0-2.0 N code = IG%) LYMPHOCYTE % (test code = LY%) 22.2 % 14.0-32.0 N MONOCYTE % (test code = MO%) 10.0 % 4.8-9.0 H EOSINOPHIL % (test code = EO%) 0.8 % 0.3-3.7 N BASOPHIL % (test code = BA%) 0.3 % 0.0-2.0 N NUCLEATED RBC % (test code = 0.0 % 0-0 N NRBC%) NEUTROPHIL # (test code = NT#) 7.87 x10 3/uL 2.0-7.6 H IMMATURE GRANULOCYTE # (test 0.10 x10 3/uL 0.00-0.03 H code = IG#) LYMPHOCYTE # (test code = LY#) 2.65 x10 3/uL 1.0-3.8 N MONOCYTE # (test code = MO#) 1.19 x10 3/uL 0.1-0.8 H EOSINOPHIL # (test code = EO#) 0.10 x10 3/uL 0.0-0.2 N BASOPHIL # (test code = BA#) 0.03 x10 3/uL 0.0-0.2 N NUCLEATED RBC # (test code = 0.00 x10 3/uL 0.0-0.1 N NRBC#) MANUAL DIFF REQUIRED (test NO code = MDIFF) AMNISURE (ROM) [id number] 00:50:00 Test Item Value Reference Range Interpretation Comments AMNISURE (ROM) TEST (test code = POSITIVE NEGATIVE A AMNI)
== END 2019-12-15 13:26 | disposition home or self-care (01) ==
LOC: ER 09:04
DX: N83.299 Other ovarian cyst, unspecified side (principal); Z20.828 Contact with and (suspected) exposure to other viral communicable diseases; R11.2 Nausea with vomiting, unspecified; F32.9 Major depressive disorder, single episode, unspecified
CPT/HCPCS: 36415; 74177; 76705; 80048; 80076; 81003; 81025; 83690; 85025; 87070; 87081; 87804; 96374; 96375; 99284; J2405; J2550; J7030; Q9967; U0002

== ENCOUNTER 2022-07-19 08:09 | Emergency (ER) | payer SELFPAY ==
--- OUTSIDE RECORDS SUMMARY | 2022-07-19 08:14 | XMS REPORT | Continuity of Care Document ---
:1990 Author Organization [facility] t Address [address] [place] [address]. [address] [place] [address] Care Team Providers Name Role Phone RIMMA_KENN_Khalida_J Attending Clinician Unavailable Jennifer Kelley Attending Clinician [phone] Jennifer Kelley Attending Clinician Unavailable Augusto Masters Attending Clinician Unavailable Yoanna Admitting Clinician Unavailable Jennifer Kelley Admitting Clinician Unavailable Payers Payer Name Policy Type Policy Number Effective Date Expiration Date S ource Problems Condition Condition Condition Status Onset Resolution Last Treating Co mments Source Name Details Category Date Date Treatment Clinician Date Encounter Encounter [id number] Active 2020-03-22 for for -12 14:22:27 observatio observatio 00:00: n for n for 00 other other suspected suspected diseases diseases and and conditions conditions ruled out ruled out (Z03.89)On set: Anxiety Anxiety Problem Active [facility] 6-19 [facility] 00:00: 00 Uterine Uterine Problem Active [facility] scar from Scar from - [facility] previous Previous 00:00: surgery in Surgery in 00 , , childbirth Childbirth and the and the puerperium [facility] Candidal Candidal Problem Active [facility] vulvovagin Vulvovagin 03-17 Me dical itis itis 00:00: 00 Multigravi Multigravi Problem Active [facility] da da 03-17 Medical 00:00: 00 Problem Active 2017-03 [facility] 2-17 Medical 00:00: 00 Well woman Well woman Problem Active [facility] exam with exam with Spir it routine routine - [facility] gy[facility]i [facility]necologi nena exam nena exam [facility] Depression Depression Problem Active C ommon , , [facility] unspecifie unspecifie - [facility] d d [facility] depression depression [facility] type [facility] Surveillan Surveillan Diagnosis Active Common ce for ce for Spirit - [facility] control, control, St intrauteri intrauteri [facility] ne device ne device [facility] Allergies, Adverse Reactions, Alerts Allergy Allergy Status Severity Reaction(s) Onset Inactive Treating Comm ents Source Name Type Date Date Clinician No Known DA Active U [facility]10 Clear Allergie 00:00: Brenner s 00 [facility] No Known DA Active U NONE [facility] 5[facility]10 Clear Allergie 00:00: Brenner s 00 [facility] Social History Smoking Status Start Date Stop Date Source Tobacco smoking consumption [facility] unknown Never Smoker [facility] Medications Ordered Filled Start Stop Current Ordering Indication Dosage Frequency Signature Comments Components Source Medication Medication Date Date Medication? Clinician (SIG) Name Name Ambien 10 Ambien 10 No 1 Q1D Ambien 10 [facility] mg tablet 1 mg tablet 1 1-01 mg tablet Medical tablet tablet 00:00: 1 tablet every day every day 00 every day by oral by oral by oral route. route. route. Trintellix Trintellix No 15mg Q1D Trintellix [facility] 10 mg 10 mg 1-01 10 mg Medical tablet 15 tablet 15 00:00: tablet 15 mg every mg every 00 mg every day by oral day by oral day by route. route. oral route. Temazepam 2020- No [id number] 15mg Temazepam; 04-08 15 mg PO 00:00: 23:59 PRN qhs 00 :00 for Insomnia RoutineSta rt: 1End: 1Ordered: 1SGwen silva t BuPROPion No [id number] 200mg BuPROPion (Eqv-Wellbu 04-06 010121 (Eqv-Wellb enrrique SR) 12:54: utrin SR); 24 200 milligram( s) orally 2 times a dayQuantit y: 0 Refills: 0Ordered: Yohannes Ugarte Substituti on Allowed busPIRone No [id number] 0 busPIRone 10 mg oral 04-06 [id number] 10 mg oral tablet 12:54: tablet; 24 orally 3 times a dayQuantit y: 0 Refills: 0Ordered: Yohannes Ugarte Substituti on Allowed lithium No [id number] 450mg lithium carbonate 04-06190 carbonate extended 12:54: extended release 24 release; 450 milligram( s) orally once a dayQuantit y: 0 Refills: 0Ordered: Yohannes Ugarteric Substituti on Allowed TraZODone* Yes [id number] 50mg TraZODone* 04-06 ; 50 mg 09:13: PO/By 00 mouth for Insomnia Take one tablet at bedtime as neededDisc [facility] Medication SupplyStar t: 1Ordered: 1SGwen silva BuPROPion Yes [id number] 100mg BuPROPion SR* 04-06 SR*; 100 09:12: mg PO/By 00 mouth for Depression Take two tablets twice dailyStart : 1Ordered: 1SGwen silva t BusPIRone* Yes [id number] 10mg BusPIRone* 04-06 ; 10 mg 09:12: PO/By 00 mouth for ANxiety Take one tablet three times dailyStart : 1Ordered: 1SUna silvaYamilaira newell [place] [facility]* Yes [id number] 450mg [place] 04-06 ER*; 450 09:12: mg PO/By 00 mouth for Mood Take one tablet in the morningsSt art: 1Ordered: 1Sricardo Gwen t Temazepam 2020- No [id number] 15mg Temazepam; 04-06 15 mg PO 08:25: 23:59 PRN qhs 00 :00 for Insomnia RoutineSta rt: 1End: 1Ordered: 1Sricardo Gwen newell Ketamine Yes [id number] Ketamine Randomiza Study Nasal 03-30 [id number] Study tion No. Holcomb 11:21: Nasal 68 00 Holcomb; Administer 5 intranasal applicatio ns of 100 l ketamine solution by 3 minutes for a duration of 15 minutes (1 applicatio n every 3 minutes). Each applicatio n will provide 10 mg of study drug. 1 X Dose for Ketamine study Randomizat ion No. 68Start: 1Ordered: Eliecer GuerreroDayanira tComments: Randomizat ion No. 68 Milk of Yes [id number] 30ml Milk of NTE 120 Magnesia 03-22 269238 Magnesia; mL in 24 14:29: 30 ml PO hours 00 PRN q4hr for Constipati on NTE 120 mL in [address]: 1Ordered: 1DChristy chinchilla entComment s: NTE 120 mL in 24 hours sertraline No [id number] 0 sertraline 03-22 [id number] Quantity: 12:48: 0 Refills: 08 0Ordered: 1CNinoska contrerasGeneric Substituti on Allowed cetirizine cetirizine No cetirizine [facility] 10 mg 10 mg 10 mg Medical capsule capsule capsule Take by Take by Take by oral route. oral route. oral route. cholecalcif cholecalcif No cholecalci [facility] cristino cristino ferol Medical (vitamin (vitamin (vitamin D3) 1,250 D3) 1,250 D3) 1,250 mcg (50,000 mcg (50,000 mcg unit) unit) (50,000 capsule capsule unit) TAKE 1 TAKE 1 capsule CAPSULE BY CAPSULE BY TAKE 1 MOUTH EVERY MOUTH EVERY CAPSULE BY WEEK WEEK MOUTH EVERY WEEK Wellbutrin Wellbutrin No Wellbutrin [facility] XL XL XL Medical Mirena (52 Mirena (52 Yes Omid as Common MG) MG) Rekhi directed [facility] Vital Signs Vital Name Observation Time Observation Value Comments Source BP Diastolic 2021-10-02 00:00:00 69 mm[Hg] Katelyn Niño edical Height 2021-10-02 00:00:00 65 [in_i] Katelyn Niño edical BMI (Body Mass Index) 2021-10-02 00:00:00 33.8 kg/m2 [facility] Medical BP Systolic 2021-10-02 00:00:00 101 mm[Hg] Katelyn Niño edical Body Weight 2021-10-02 00:00:00 203 [lb_av] Katelyn Niño edical Procedures Procedure Date / Time Performed Performing Clinician [facility] e Procedure on Bone Marrow 2021-05-15 00:00:00 [facility] Back / Spine Surgery 2021-05-15 00:00:00 [facility] Medical Endometrial Ablation 2020-10-14 00:00:00 [facility] Medical Tubal Ligation 2020-10-14 00:[facility]/SARS-CoV-2 2020-04-04 11:39:00 Marcia Cruz EKG 2020-04-01 14:38:00 Augusto Masters Caesarean Section 2018-09-11 00:00:00 [facility] Cholecystectomy 2017-04-11 00:00:00 [facility] (Gallbladder) Caesarean Section 2013-07-18 00:00:00 [facility] Plan of Care Planned Activity Planned Date Details Comments Source Diagnostic Test 2021-10-02 pap, LB + HPV [code = [facility] Pending 00:00:00 pap, LB + HPV] Diagnostic Test 2020-04-06 Discharge Patient Pending 09:31:00 [code = DischargePatient] Diagnostic Test 2020-04-05 Vital Signs [code = Pending 11:08:00 VitalSigns] Diagnostic Test 2020-04-05 NPO (NO PER ORAL) Pending 08:00:00 AFTER 11:00 PM [code = NPO(NOPERORAL)AFTER11: 00PM] Diagnostic Test 2020-03-31 ECT Evaluation [code = Pending 11:39:00 ECTEvaluation] Diagnostic Test 2020-03-31 Blood draw for Pending 00:00:00 Ketamine Study [code = BlooddrawforKetamineSt udy] Diagnostic Test 2020-03-30 Blood draw for Pending 11:21:00 Ketamine Study [code = BlooddrawforKetamineSt udy] Diagnostic Test 2020-03-30 Blood draw for Pending 11:21:00 Ketamine Study [code = BlooddrawforKetamineSt udy] Diagnostic Test 2020-03-30 Ketamine Study - Vital Pending 11:21:00 Signs [code = KetamineStudy-VitalSig ns] Diagnostic Test 2020-03-30 Ketamine Study - Vital Pending 11:21:00 Signs [code = KetamineStudy-VitalSig ns] Diagnostic Test 2020-03-30 Ketamine Study - Vital Pending 11:21:00 Signs [code = KetamineStudy-VitalSig ns] Diagnostic Test 2020-03-30 Ketamine Study - Vital Pending 11:21:00 Signs [code = KetamineStudy-VitalSig ns] Diagnostic Test 2020-03-30 Ketamine Study - Vital Pending 11:21:00 Signs [code = KetamineStudy-VitalSig ns] Diagnostic Test 2020-03-22 Brief Individual Pending 14:29:00 Intervention - Adult [code = BriefIndividualInterve ntion-Adult] Diagnostic Test 2020-03-22 Regular Diet [code = Pending 14:28:00 RegularDiet] Diagnostic Test 2020-03-22 Suicide Precautions Pending 14:28:00 [code = SuicidePrecautions] Diagnostic Test 2020-03-22 Assess and involve in Pending 14:28:00 group therapy [code = Assessandinvolveingrou ptherapy] Future Appointment 2022-11-28 An[facility] Encinas [facility] 12:00:[address]; [address], [place] [address] Encounters Start End Encounter Admission Attending Care Care Encounter Source Date/Time Date/Time Type Type Clinicians Facility Department ID 2022-03-06 Outpatient [facility] [id number] [place] 13:01:11 [id number] [facility] 2021-10-02 2021-10-02 Outpatient GC_SWPUJABAWS PRIV PRIV [id number] [facility] 04:37:00 04:37:00 _Aman [id number] [facility] 2021-10-02 2021-10-02 Outpatient Warren PRIV PRIV [id number] 00:00:00 00:00:00 Jennifer Lund [id number] 2021-10-02 2021-10-02 Jennifer J[facility]NS [facility] [id number] [facility] 00:00:00 00:00:00 Brandan Kelley [facility] MD: 560 GC_WANDASINDHUREUBEN [address], [place] [address] , Ph. 2021-09-26 2021-09-26 Outpatient GC_KENN PRIV PRIV [id number] [facility] 11:29:00 11:29:00 _Aman [id number] [facility] 2020-10-14 2020-10-14 Outpatient LINDSEY RiceKelley BETITOCL ADMI [id number] [facility] 14:51:00 14:51:00 Jennifer [id number] [facility] 2020-03-22 2020-04-06 Inpatient Sonam, 1 [facility]-2D-22- 0 [id number] [place] 14:21:00 15:25:00 Augusto [facility] 2017-11-13 2017-11-13 Outpatient Braznanci [facility] [id number] Common 09:30:00 09:30:00 t [facility] 2017-10-29 2017-10-29 Outpatient Brazospor [facility]ospor[facility] 15 [id number] Common 16:55:00 16:55:00 [facility] 2017-10-03 2017-10-03 Outpatient Harvey Martinez [id number] Common 09:30:00 09:30:00 [facility] Results Test Description Test Time Test Comments Results Result Comments Source SURGICAL PATH SPECIMENS 2020-10-18 14:17:00 Test Item Value Reference Range Interpretation Comme nts SURGICAL RUN PATH DATE: 10/18/20 [place] - LAB PAGE 1 RUN TIME: 1417 Specimen Inquiry RUN USER: INTERFACE SPECIMENS LINETTE (test code ENT: SAIDA SALINAS ACCT #: [id number] LOC: [facility] U #: [id number] AGE/SX: 30/F ROOM: REG: = S) 10/14/20REG DR: Jennifer Kelley MD : 90 BED: DIS: STATUS: DEP REF TLOC: SPEC #: [id number] RECD: STATUS: TEODORA MIRELES #: [id number] KIERRA: 10/14/20- SUBM DR: Jennifer Kelley MD ENTERED: SP TYPE: SURG SPEC OTHR DR: ORDERED: GM L2 88886/2, GM L4 57075 COMMENTS: 2.ENDOME TRIAL CURETTINGS [id number] CODES: [id number] - FALLOPIAN TUBE PROCEDURES: GM L2 03596 (10/17/20) GM L4 33607 (10/17/20) TISSUES: 2. FALLOPIAN TUBE, NOS - RIGHT AND LEFT FINAL DIAGNOSIS Fal lopian tube, right, segment: Complete transection of lumen. Fallopian tube, left, segmen t: Complete transection of lumen. Endometrium, curettings: Endometrial polyp. GROSS AND MICROSCOPIC GROSS EXAMINATION: Specimen #1, right fallopian tube is 1 segment of tube measuring 5 x 0.5 cm. Sections are submitted A. Specimen #2 shows 1 segment of fallopian tube measuring 6 x 0.6 cm with focal possible cyst measuring up to 0.4 cm. Sections are submitted B. Specimen #3 , endometrial curettings are small segments of pink-pascual tissue measuring 1.1 cm in largest dimension in aggregate. Entirely submitted C. Microscopic examination: Each of the tub al segments shows complete transection of the lumen. The possible cyst of the left fallopian t ube shows vascular tissue. The endometrial curettings small endometrial polyp. -- Signed SIGNATURE ON FILE Glenys Cronin MD 10/18/20 1 417 END OF REPORT Dibucaine, S/RBC [id number] 13:06:00 Test Item Value Reference Range Interpretation Comments Cholinesterase, RBC (819309) (test 5946 U/L code = Cholinesterase,RBC(120466)) [place] [id number] 15:51:00 Test Item Value Reference Range Interpretation Comments [place] Level (test 0.7 mmol/L Detectio n Limit = 0.1 code = LithiumLevel) <0.1 in dicates None Detected Comprehensive Metabolic [id number] 15:02:00 Test Item Value Reference Range Interpretation Comments Glucose,Serum (test code = 89 mg/dL Glucose,Serum) BUN (test code = BUN) 8 mg/dL Creatinine,Serum (test code = 0.92 mg/dL Creatinine,Serum) eGFR If NonAfrican Am (572309) 84 mL/min/1.73 (test code = eGFRIfNonAfricanAm(537583)) eGFR If Am (904329) 97 mL/min/1.73 (test code = eGFRIfAfricanAm(592425)) BUN/Creat Ratio (test code = 9 BUN/CreatRatio) Sodium (test code = Sodium) 142 mmol/L Potassium (test code = 4.1 mmol/L Potassium) Chloride (test code = 105 mmol/L Chloride) zzzCO2 (test code = zzzCO2) 24 mmol/L Calcium (test code = Calcium) 9.7 mg/dL Protein, Total (test code = 7.1 g/dL Protein,Total) Albumin (test code = Albumin) 4.3 g/dL Globulin, Total (test code = 2.8 g/dL Globulin,Total) A/G Ratio (test code = 1.5 A/GRatio) Bilirubin, Total (test code = 0.5 mg/dL Bilirubin,Total) Alkaline Phosphatase (test 94 {IU/L} code = AlkalinePhosphatase) AST (test code = AST) 14 {IU/L} ALT (test code = ALT) 23 {IU/L} CBC w/ Diff w/ [id number] 15:00:00 Test Item Value Reference Range Interpretation Comments WBC Count (test code = 9.7 {x10E3/uL} WBCCount) zzzRBC Count (test code = 5.63 {x10E6/uL} zzzRBCCount) Hemoglobin (test code = 17.0 g/dL Hemoglobin) zzzHematocrit (test code = 51.3 % zzzHematocrit) MCV (test code = MCV) 91 fL MCH (test code = MCH) 30.2 pg MCHC (test code = MCHC) 33.1 g/dL RDW (test code = RDW) 12.6 % Platelets (test code = 223 {x10E3/uL} Platelets) Neutrophils (test code = 71 % Neutrophils) Lymphs (test code = Lymphs) 20 % Monocytes (test code = 6 % Monocytes) Eosinophils (test code = 3 % Eosinophils) Basophils (test code = 0 % Basophils) Neutrophils (Absolute) (test 6.7 {x10E3/uL} code = Neutrophils(Absolute)) Lymphs(Absolute) (test code = 2.0 {x10E3/uL} Lymphs(Absolute)) Monocytes(Absolute) (test 0.6 {x10E3/uL} code = Monocytes(Absolute)) Eosinophils(Absolute) (test 0.3 {x10E3/uL} code = Eosinophils(Absolute)) Basophils(Absolute) (test 0.0 {x10E3/uL} code = Basophils(Absolute)) Immature Granulocytes (test 0 % code = ImmatureGranulocytes) Immature Grans (Abs) (test 0.0 {x10E3/uL} code = ImmatureGrans(Abs)) Test, [id number] 14:55:00 Test Item Value Reference Range Interpretation Comments Test, Urine (test code = Negative PregnancyTest,Urine) [place] [id number] 14:50:00 Test Item Value Reference Range Interpretation Comments [place] Level (test 0.4 mmol/L Detectio n Limit = 0.1 code = LithiumLevel) <0.1 in dicates None Detected Comprehensive Metabolic [id number] 14:30:00 Test Item Value Reference Range Interpretation Comments Glucose,Serum (test code = 90 mg/dL Glucose,Serum) BUN (test code = BUN) 8 mg/dL Creatinine,Serum (test code = 0.65 mg/dL Creatinine,Serum) eGFR If NonAfrican Am 120 mL/min/1.73 (113931) (test code = eGFRIfNonAfricanAm(443220)) eGFR If Am (402645) 138 mL/min/1.73 (test code = eGFRIfAfricanAm(414829)) BUN/Creat Ratio (test code = 12 BUN/CreatRatio) Sodium (test code = Sodium) 140 mmol/L Potassium (test code = 4.1 mmol/L Potassium) Chloride (test code = 102 mmol/L Chloride) zzzCO2 (test code = zzzCO2) 24 mmol/L Calcium (test code = Calcium) 9.0 mg/dL Protein, Total (test code = 6.9 g/dL Protein,Total) Albumin (test code = Albumin) 4.3 g/dL Globulin, Total (test code = 2.6 g/dL Globulin,Total) A/G Ratio (test code = 1.7 A/GRatio) Bilirubin, Total (test code = 0.3 mg/dL Bilirubin,Total) Alkaline Phosphatase (test 83 {IU/L} code = AlkalinePhosphatase) AST (test code = AST) 14 {IU/L} ALT (test code = ALT) 22 {IU/L} [id number] 14:30:00 Test Item Value Reference Range Interpretation Comments TSH (909613) (test code = 1.500 {uIU/mL} TSH(831763)) Lipid Panel with LDL/HDL [id number] 14:30:00 Test Item Value Reference Range Interpretation Comments zzzCholesterol, Total 124 mg/dL (test code = zzzCholesterol,Total) Triglycerides (test code 74 mg/dL = Triglycerides) zzzHDL Cholesterol (test 46 mg/dL code = zzzHDLCholesterol) VLDL Cholesterol 15 mg/dL Calculated (test code = VLDLCholesterolCalculate d) LDL Cholesterol NENA 63 mg/dL (NIH) (test code = LDLCholesterolCAL([facility])) LDL/HDL Ratio (990897) 1.4 {ratio} . LDL /HDL Ratio (test code = Men Women 1/2 LDL/HDLRatio(013440)) Avg.Ri sk 1.0 1.5 Avg.Risk 3.6 3. 2 2X Avg.Risk 6.2 5.0 3X Avg.Risk 8.0 6.1 Urine Drug Screen [id number] 13:07:00 Test Item Value Reference Interpretation Comments Range Amphetamine Negative Amphetamine Methamphetmine test includes 407921 (test code = Amphetam ine and AmphetamineMethamphe Methamp hetamine [id number]) . Barbiturate (357386) Negative (test code = Barbiturate(230555)) Benzodiazepines Negative (925762) (test code = Benzodiazepines(7148 32)) Cocaine Metabolite Negative (496671) (test code = CocaineMetabolite(71 4857)) Phencyclidine Negative (916735) (test code = Phencyclidine(627376 )) Cannabinoid (749530) Negative (test code = Cannabinoid(084706)) Drug Screen Comment NOTE : .This analysis (test code = is performed by DrugScreenComment) immunoassay. Positivefindings are unconfirmed analytical test results; ifresults do not support expected clinical finding,confirmation by an alternate methodology is recommended.Patient metabolic variables, specific drug chemistry, andspecimen characteristics can affect test outcome.Technical consultation is available [email or web address], or call toll free [phone]. Opiates (911983) Negative Opiate test (test code = includes Opiates(322680)) Codeine and Morphine only. CBC w/ Diff w/ [id number] 12:50:00 Test Item Value Reference Range Interpretation Comments WBC Count (test code = 7.5 {x10E3/uL} WBCCount) zzzRBC Count (test code = 4.17 {x10E6/uL} zzzRBCCount) Hemoglobin (test code = 12.6 g/dL Hemoglobin) zzzHematocrit (test code = 37.3 % zzzHematocrit) MCV (test code = MCV) 89 fL MCH (test code = MCH) 30.2 pg MCHC (test code = MCHC) 33.8 g/dL RDW (test code = RDW) 12.8 % Platelets (test code = 380 {x10E3/uL} Platelets) Neutrophils (test code = 61 % Neutrophils) Lymphs (test code = Lymphs) 29 % Monocytes (test code = 7 % Monocytes) Eosinophils (test code = 2 % Eosinophils) Basophils (test code = 1 % Basophils) Neutrophils (Absolute) (test 4.5 {x10E3/uL} code = Neutrophils(Absolute)) Lymphs(Absolute) (test code = 2.2 {x10E3/uL} Lymphs(Absolute)) Monocytes(Absolute) (test 0.5 {x10E3/uL} code = Monocytes(Absolute)) Eosinophils(Absolute) (test 0.2 {x10E3/uL} code = Eosinophils(Absolute)) Basophils(Absolute) (test 0.1 {x10E3/uL} code = Basophils(Absolute)) Immature Granulocytes (test 0 % code = ImmatureGranulocytes) Immature Grans (Abs) (test 0.0 {x10E3/uL} code = ImmatureGrans(Abs)) CBC W/AUTO [id number] 07:14:00 Test Item Value Reference Range Interpretation Comments WHITE BLOOD CELL (test code = 9.03 x10 3/uL 4.5-11.0 N WBC) RED BLOOD CELL (test code = 3.66 x10 6/uL 3.54-5.02 N RBC) HEMOGLOBIN (test code = HGB) 10.9 g/dL 11.0-15.0 L HEMATOCRIT (test code = HCT) 33.9 % 33.0-45.0 N MEAN CELL VOLUME (test code = 92.6 fL 81.0-99.0 N MCV) MEAN CELL HGB (test code = MCH) 29.8 pg 27.0-33.0 N MEAN CELL HGB CONCETRATION 32.2 g/dL 33.0-37.0 L (test code = MCHC) RED CELL DISTRIBUTION WIDTH CV 13.6 % 11.5-14.5 N (test code = RDW) RED CELL DISTRIBUTION WIDTH SD 45.9 fL 37.0-54.0 N (test code = RDW-SD) PLATELET COUNT (test code = 312 x10 3/uL 150-400 N PLT) MEAN PLATELET VOLUME (test code 11.6 fL 7.0-9.0 H = MPV) NEUTROPHIL % (test code = NT%) 57.7 % 56.0-77.0 N IMMATURE GRANULOCYTE % (test 0.7 % 0.0-2.0 N code = IG%) LYMPHOCYTE % (test code = LY%) 31.5 % 14.0-32.0 N MONOCYTE % (test code = MO%) 8.5 % 4.8-9.0 N EOSINOPHIL % (test code = EO%) 1.3 % 0.3-3.7 N BASOPHIL % (test code = BA%) 0.3 % 0.0-2.0 N NUCLEATED RBC % (test code = 0.0 % 0-0 N NRBC%) NEUTROPHIL # (test code = NT#) 5.21 x10 3/uL 2.0-7.6 N IMMATURE GRANULOCYTE # (test 0.06 x10 3/uL 0.00-0.03 H code = IG#) LYMPHOCYTE # (test code = LY#) 2.84 x10 3/uL 1.0-3.8 N MONOCYTE # (test code = MO#) 0.77 x10 3/uL 0.1-0.8 N EOSINOPHIL # (test code = EO#) 0.12 x10 3/uL 0.0-0.2 N BASOPHIL # (test code = BA#) 0.03 x10 3/uL 0.0-0.2 N NUCLEATED RBC # (test code = 0.00 x10 3/uL 0.0-0.1 N NRBC#) MANUAL DIFF REQUIRED (test code NO = MDIFF) COMMENTS: POD #1 and #2COMPREHENSIVE METABOLIC [id number] 08:08:00 Test Item Value Reference Range Interpretation [...] code = ALKP) COMMENTS: POD #1CBC W/AUTO [id number] 07:10:00 Test Item Value Reference Range Interpretation [...] MDIFF) COMMENTS: POD #1 and #2RAPID PLASMA [id number] 11:10:00 Test Item Value Reference Range Interpretation Comments RAPID PLASMA REAGIN (test code = NONREACTIVE NONREACTIVE RPR) AG HEPATITIS B [id number] 11:10:00 Test Item Value Reference Range Interpretation Comments AG HEPATITIS B SURFACE NON REACTIVE INDEX NonReactive (test code = HBSAG) AB HIV 1 11:10:00 Test Item Value Reference Range Interpretation Comments AB HIV 1 2 (test code = NONREACTIVE INDEX NONREACTIVE [id number]) RAPID PLASMA [id number] 04:36:00 Test Item Value Reference Range Interpretation Comments RAPID PLASMA REAGIN (test code = RPR) NONREACTIVE AG HEPATITIS B [id number] 04:36:00 Test Item Value Reference Range Interpretation Comments AG HEPATITIS B SURFACE NON REACTIVE INDEX NonReactive (test code = HBSAG) AB HIV 1 04:36:00 Test Item Value Reference Range Interpretation Comments AB HIV 1 2 (test code = NONREACTIVE INDEX NONREACTIVE [id number]) RAPID PLASMA [id number] 02:20:00 Test Item Value Reference Range Interpretation Comments RAPID PLASMA REAGIN (test code = RPR) NONREACTIVE AG HEPATITIS B [id number] 02:20:00 Test Item Value Reference Range Interpretation Comments AG HEPATITIS B SURFACE NON REACTIVE INDEX NonReactive (test code = HBSAG) AB HIV 1 02:20:00 Test Item Value Reference Range Interpretation Comments AB HIV 1 2 (test code = KOT61PU) INDEX NONREACTIVE CBC W/AUTO [id number] 01:30:00 Test Item Value Reference Range Interpretation [...] (test NO code = MDIFF) AMNISURE (ROM) [id number] 00:50:00 Test Item Value Reference Range Interpretation Comments AMNISURE (ROM) TEST (test code = POSITIVE NEGATIVE A AMNI)
[2022-07-19] MEDS ORDERED: NA CHLORIDE 0.9% 1,000 ML ONE (08:28)
[2022-07-19] MEDS ORDERED: FAMOTIDINE 20 MG/2 ML VIAL IV ONE (08:28)
[2022-07-19] MEDS ORDERED: ONDANSETRON 4 MG/2 ML VIAL ONE (08:28)
[2022-07-19 08:53] LABS: Absolute Lymphocytes (CBC) 2.3 K/uL (0.7-4.9); Hematocrit 41.3 % (36.0-45.0); Lymphocytes % 31.5 % (15.3-44.8); MCV 93.8 fL (80-100); MPV 9.2 fL (7.6-11.3); RBC Red Blood Cell Count 4.41 M/uL (3.86-4.86)
[2022-07-19 09:12] LABS: Albumin 4.1 g/dL (3.4-5.0); Bilirubin Total 0.4 mg/dL (0.2-1.0); Potassium 3.4 mEq/L (3.5-5.1); Protein, Total 7.9 g/dL (6.4-8.2)
[2022-07-19] MEDS ORDERED: Ringers Lactate 1,000 ML IV ONE (10:06)
--- NOTE | 2022-07-19 10:40 | RAD REPORT ---
EXAM DESCRIPTION: CT - Abdomen Pelvis W Contrast - 07/19/2022 10:07 am CLINICAL HISTORY: abdominal pain ,vomiting, elevated lipase COMPARISON: Abdomen Pelvis W Contrast dated 12/15/2019 TECHNIQUE: Thin cut axial CT imaging of the abdomen and pelvis was performed following intravenous a dministration of 95 mL Isovue 300. Multiplanar reformats were generated and reviewed. All CT scans are performed using dose optimization technique as appropriate and may include automated exposure control or mA/KV adjustment according to patient size. FINDINGS: No suspicious findings in the lung bases. The liver, spleen, and pancreas show no suspicious findings. Gallbladder was surgically removed. No i ntra or extrahepatic biliary ductal dilation. Symmetric renal function is seen with no hydronephrosis or suspicious renal mass. No dilated bowel loops or bowel wall thickening. No free air, free fluid or inflammatory stranding. N o hernia, mass or bulky lymphadenopathy. The urinary bladder is without significant finding. No suspicious bony findings. IMPRESSION: No acute intra-abdominal process.
[2022-07-19] MEDS ORDERED: METOCLOPRAMIDE 10 MG/2mL INJ ONE (10:55)
[2022-07-19] MEDS ORDERED: NA CHLORIDE 0.9% 250 ML ONE (10:55)
[2022-07-19] MEDS ORDERED: DIPHENHYDRAMINE 50 MG/ML VIAL ONE (10:56)
--- NOTE | 2022-07-19 12:34 | EDPHYS ---
Physician Documentation [facility] Name: Kylie Salas Age: 32 yrs Sex: Female : 1990 Arrival Date: 07/19/2022 Time: 08:09 Bed 5 Private MD: ED Physician Sandra Mo HPI: 07/19 08:14 This 32 yrs old Female presents to ER via Wheelchair with complaints of jmm Vomiting, Dizziness. 08:14 The patient presents to the emergency department with nausea, vomiting. Onset: The jmm symptoms/episode began/occurred gradually. Possible causes: Medication. The symptoms are aggravated by nothing. The symptoms are alleviated by nothing. Associated signs and symptoms: Pertinent positives: abdominal pain. This is a 32-year-old female with history of depression anxiety the presents emerged department with complaints of ongoing vomiting and nausea. Patient recently discontinued semaglutide.. Historical: - Allergies: 08:25 No Known Allergies; iw - Home Meds: 08:25 Wellbutrin Oral [Active]; Trintellix oral [Active]; Ondansetron Oral [Active]; iw - PMHx: 08:25 Depression; Anxiety; iw - PSHx: 08:25 section; tubal ligation; uterine ablation; Cholecystectomy; iw - Immunization history:: Adult Immunizations up to date, Client reports receiving the 2nd dose of the Covid vaccine. - Social history:: Smoking status: Patient denies any tobacco usage or history of. Vital Signs: 08:27 BP 111 / 63; Pulse 73; Resp 16 S; Temp 97.4(TE); Pulse Ox 100% on R/A; Weight 81.65 kg; iw Height 5 ft. 5 in. ; Pain 3/10; 09:30 BP 100 / 68; Pulse 82; Resp 16; Pulse Ox 99% on R/A; db 10:48 BP 99 / 60; Pulse 76; Resp 14; Pulse Ox 98% on R/A; db 12:50 BP 110 / 71; Pulse 78; Resp 18; Temp 97.9; Pulse Ox 99% on R/A; ph 08:27 Body Mass Index 29.95 (81.65 kg, 165.1 cm) iw 08:27 Pain Scale: Adult iw MDM: 08:14 Patient medically screened. [facility] 05/11 08:17 Order name: CBC with Diff; Complete Time: 09:02 [facility] 07/19 08:17 Order name: CMP; Complete Time: 09:12 [facility] 07/19 08:17 Order name: Lipase; Complete Time: 09:12 [facility] 07/19 09:50 Order name: CT Abd/Pelvis - IV Contrast Only; Complete Time: 10:42 [facility] 07/19 08:17 Order name: IV Saline Lock; Complete Time: 08:44 [facility] 07/19 08:17 Order name: Labs collected and sent; Complete Time: 08:44 [facility] 07/19 11:19 Order name: PO challenge; Complete Time: 12:17 [facility] Administered Medications: 08:40 Drug: NS 0.9% IV 1000 ml Route: IV; Rate: 1 bolus; Site: left antecubital; db 10:00 Follow up: Response: No adverse reaction; IV Status: Completed infusion; IV Intake: db 1000ml 08:40 Drug: Famotidine IVP 20 mg Route: IVP; Site: left antecubital; db 10:40 Follow up: Response: No adverse reaction db 08:40 Drug: Ondansetron IVP 4 mg Route: IVP; Site: left antecubital; db 10:55 Follow up: Response: No adverse reaction db 10:15 Drug: Lactated Ringers Solution IV 1000 ml Route: IV; Rate: 1000 bolus; Site: right db antecubital; 12:51 Follow up: Response: No adverse reaction; IV Status: Completed infusion; IV Intake: ph 1000ml 10:55 Drug: metoCLOPramide IVP 10 mg Route: IVP; Site: left antecubital; db 12:51 Follow up: Response: No adverse reaction; Nausea is decreased; Vomiting decreased ph 10:55 Drug: diphenhydrAMINE IVP 12.5 mg Route: IVP; Site: left antecubital; db 12:51 Follow up: Response: No adverse reaction ph Disposition: 15:53 STAFF ATTESTATION: The patient's history, exam findings, diagnostics and a summary of sd2 any interventions or procedures was reviewed in detail with the ED TANNA. I confirm the diagnosis as documented by the TANNA and I agree with the care plan articulated in the disposition section with regards to our discussion of the patient's case. Sandra Mo MD. Disposition Summary: 07/19/22 12:33 Discharge Ordered Location: Home [facility] Condition: Stable [facility] Diagnosis - Vomiting [facility] Followup: [facility] - With: Pedro Garcia MD - When: 2 - 3 days - Reason: Recheck today's complaints, Continuance of care, Re-evaluation by your physician Discharge Instructions: - Discharge Summary Sheet jmm - Vomiting, Adult jmm Forms: - Medication Reconciliation Form [facility] - Thank You Letter [facility] - Antibiotic Education [facility] - Prescription Opioid Use [facility] - Family Work Release db Prescriptions: - ondansetron 4 mg Oral Tablet,disintegrating - take 1 tablet by ORAL route every 4-6 hours As needed; 30 tablet; Refills: 0, [facility] Product Selection Permitted - Reglan 10 mg Oral Tablet - take 1 tablet by ORAL route every 6 hours As needed take 30 minutes before [facility] meals and at bedtime; 30 tablet; Refills: 0, Product Selection Permitted Signatures: Dispatcher [employer] EDThomas Orozco PA PA [facility] Maria Luisa Mccoy, RN RN Sandra Mo MD MD sd2 Francia Gillespie RN RN db Leslie Lyons RN ph
--- NOTE | 2022-07-19 12:34 | ER ---
Nurse's Notes [facility] Name: Kylie Salas Age: 32 yrs Sex: Female : 1990 Arrival Date: 07/19/2022 Time: 08:09 Bed 5 Private MD: Diagnosis: Vomiting Presentation: 07/19 08:23 Chief complaint: Patient states: has been dealing with intermittent diarrhea and iw vomiting for past couple months, side effect of weight loss shots, she stopped the shots two weeks ago and she is still having diarrhea and vomiting, last episode was this weekend and yesterday, also has generalized abd pain and weakness/dizziness. Coronavirus screen: At this time, the client does not indicate any symptoms associated with coronavirus-19. Ebola Screen: Patient negative for fever greater than or equal to 101.5 degrees Fahrenheit, and additional compatible Ebola Virus Disease symptoms Patient denies exposure to infectious person. Patient denies travel to an Ebola-affected area in the 21 days before illness onset. No symptoms or risks identified at this time. Initial Sepsis Screen: Does the patient meet any 2 criteria? No. Patient's initial sepsis screen is negative. Does the patient have a suspected source of infection? No. Patient's initial sepsis screen is negative. Risk Assessment: Do you want to hurt yourself or someone else? Patient reports no desire to harm self or others. Onset of symptoms was July 19, 2022. 08:23 Method Of Arrival: Wheelchair iw 08:23 Acuity: LYNETTE 3 iw Historical: - Allergies: 08:25 No Known Allergies; iw - Home Meds: 08:25 Wellbutrin Oral [Active]; Trintellix oral [Active]; Ondansetron Oral [Active]; iw - PMHx: 08:25 Depression; Anxiety; iw - PSHx: 08:25 section; tubal ligation; uterine ablation; Cholecystectomy; iw - Immunization history:: Adult Immunizations up to date, Client reports receiving the 2nd dose of the Covid vaccine. - Social history:: Smoking status: Patient denies any tobacco usage or history of. Screenin:46 [facility] ED Fall Risk Assessment (Adult) History of falling in the last 3 months, db including since admission No falls in past 3 months (0 pts) Confusion or Disorientation No (0 pts) Intoxicated or Sedated No (0 pts) Impaired Gait No (0 pts) Mobility Assist Device Used No (0 pt) Altered Elimination No (0 pt) Score/Fall Risk Level 0 - 2 = Low Risk Oriented to surroundings, Maintained a safe environment. Abuse screen: Denies threats or abuse. Denies injuries from another. Nutritional screening: No deficits noted. Tuberculosis screening: No symptoms or risk factors identified. Assessment: 08:35 Reassessment: Patient appears in no apparent distress at this time. Patient and/or db family updated on plan of care and expected duration. Pain level reassessed. Patient is alert, oriented x 3, equal unlabored respirations, skin warm/dry/pink. Abdominal pain with nausea and vomiting since yesterday 1700 but has been off and on x 2 weeks. General: Appears in no apparent distress. comfortable, Behavior is calm, cooperative. Pain: Complains of pain in abdomen. Neuro: Level of Consciousness is awake, alert, obeys commands, Oriented to person, place, time, situation. GI: Abdomen is flat, non-distended, Pt is actively vomiting. 09:30 Reassessment: Patient appears in no apparent distress at this time. Patient and/or db family updated on plan of care and expected duration. Pain level reassessed. Patient is alert, oriented x 3, equal unlabored respirations, skin warm/dry/pink. Patient states feeling better. Patient states symptoms have improved. 10:03 Reassessment: patient to CT. Vital Signs: 08:27 BP 111 / 63; Pulse 73; Resp 16 S; Temp 97.4(TE); Pulse Ox 100% on R/A; Weight 81.65 kg; iw Height 5 ft. 5 in. ; Pain 3/10; 09:30 BP 100 / 68; Pulse 82; Resp 16; Pulse Ox 99% on R/A; db 10:48 BP 99 / 60; Pulse 76; Resp 14; Pulse Ox 98% on R/A; db 12:50 BP 110 / 71; Pulse 78; Resp 18; Temp 97.9; Pulse Ox 99% on R/A; ph 08:27 Body Mass Index 29.95 (81.65 kg, 165.1 cm) iw 08:27 Pain Scale: Adult iw ED Course: 08:10 Patient arrived in ED. rg4 08:11 Thomas Dubon PA is PHCP. jmm 08:11 Sandra Mo MD is Attending Physician. m 08:18 Francia Gillespie, RN is Primary Nurse. db 08:25 Triage completed. iw 08:27 Arm band placed on. iw 08:45 Patient has correct armband on for positive identification. Bed in low position. Call db light in reach. Side rails up X 1. 08:45 Inserted saline lock: 20 gauge in left antecubital area, using aseptic technique. Blood ks8 collected. 10:08 CT Abd/Pelvis - IV Contrast Only In Process Unspecified. EDMS 12:33 Pedro Garcia MD is Referral Physician. jmm 12:49 No provider procedures requiring assistance completed. IV discontinued, intact, ph bleeding controlled, No redness/swelling at site. Pressure dressing applied. Administered Medications: 08:40 Drug: NS 0.9% IV 1000 ml Route: IV; Rate: 1 bolus; Site: left antecubital; db 10:00 Follow up: Response: No adverse reaction; IV Status: Completed infusion; IV Intake: db 1000ml 08:40 Drug: Famotidine IVP 20 mg Route: IVP; Site: left antecubital; db 10:40 Follow up: Response: No adverse reaction db 08:40 Drug: Ondansetron IVP 4 mg Route: IVP; Site: left antecubital; db 10:55 Follow up: Response: No adverse reaction db 10:15 Drug: Lactated Ringers Solution IV 1000 ml Route: IV; Rate: 1000 bolus; Site: right db antecubital; 12:51 Follow up: Response: No adverse reaction; IV Status: Completed infusion; IV Intake: ph 1000ml 10:55 Drug: metoCLOPramide IVP 10 mg Route: IVP; Site: left antecubital; db 12:51 Follow up: Response: No adverse reaction; Nausea is decreased; Vomiting decreased ph 10:55 Drug: diphenhydrAMINE IVP 12.5 mg Route: IVP; Site: left antecubital; db 12:51 Follow up: Response: No adverse reaction ph Medication: 12:50 VIS not applicable for this client. ph Intake: 10:00 IV: 1000ml; Total: 1000ml. db 12:51 IV: 1000ml; Total: 2000ml. ph Outcome: 12:33 Discharge ordered by . jmm 12:50 Discharged to home ambulatory, with family. ph 12:50 Condition: good 12:50 Discharge instructions given to patient, family, Instructed on discharge instructions, follow up and referral plans. medication usage, Demonstrated understanding of instructions, follow-up care, medications, Prescriptions given X 2. 12:58 Patient left the ED. iw Signatures: Dispatcher [employer] EDMS Thomas Dubon PA PA jmm Williams, Irene, RN RN Leslie Lyons RN RN Patricia Strickland rg4 Francia Gillespie RN RN Simi Hernandez ks8 Corrections: (The following items were deleted from the chart) 08:33 08:27 BP 111 / 63; Pulse 73bpm; Resp 16bpm; Spontaneous; Pulse Ox 100% RA; 81.65 kg; iw Height 5 ft. 5 in.; BMI: 29.9; Pain 3/10, Adult; iw
[2022-07-19 13:23] VITALS: BP 110/71; TEMP 97.9; O2SAT 99
== END 2022-07-19 12:58 | disposition home or self-care (01) ==
LOC: ER 08:09
DX: R11.10 Vomiting, unspecified (principal)
CPT/HCPCS: 36415; 74177; 80053; 83690; 85025; 96361; 96374; 96375; 99284; J1200; J2405; J2765; J7030; J7050; J7120; Q9967